=== PATIENT | female | born 1975 | race Caucasian/White ===

== ENCOUNTER 2018-08-02 21:43 | Emergency (ER) | payer OTHER ==
[~2018-08-02] VITALS: Ht 177.8 cm; Wt 70.0 kg
[2018-08-02] MEDS ORDERED: CefTRIAXone 1000mg IM Kit (w/lidocaine diluent) IM ONE (23:35)
[2018-08-02] MEDS ORDERED: metroNIDAZOLE 500mg tablet PO ONE (23:35)
[2018-08-02] MEDS ORDERED: azithromycin 250mg tablet PO ONE (23:35)
[2018-08-02 23:44] LABS: CLARITY,URINE CLEAR (Clear); COLOR,URINE YELLOW (Yellow); GLUCOSE, URINE NEGATIVE (Neg); KETONES,URINE TRACE mg/dl (Neg); LEUKOCYTE ESTERASE ,URINE NEGATIVE (Neg); NITRITES, URINE NEGATIVE (Neg); OCCULT BLOOD,URINE SMALL (Neg); PROTEIN,URINE TRACE mg/dl (Neg); URINE HCG NEGATIVE (NEG); UROBILINOGEN,URINE 0.2 E.U/dL (0.2-1.0)
[2018-08-03] LABS: UA COLLECTION TYPE CLN CATCH MIDSTREAM
[2018-08-03 00:02] LABS: BACTERIA,URINE 2+ /HPF (Neg); RBC,URINE 0-2 /HPF (0-2); WBC,URINE NONE SEEN /HPF (0-4)
[2018-08-03 00:03] LABS: SQUAMOUS EPITHELIAL CELL,UR MANY /LPF (FEW)
[2018-08-03 00:09] VITALS: BP 163/101
== END 2018-08-03 01:18 | disposition home or self-care (01) ==
LOC: ER 21:45
DX: N89.8 Other specified noninflammatory disorders of vagina (principal); R30.0 Dysuria; I10 Essential (primary) hypertension
CPT/HCPCS: 36415; 81001; 81025; 87210; 87491; 87591; 96372; 99283; J0696; 81003; J3490

== ENCOUNTER 2019-11-20 19:32 | Emergency (ER) | payer MEDICAID ==
[~2019-11-20] VITALS: Ht 177.8 cm; Wt 68.2 kg
--- NOTE | 2019-11-20 19:47 | NUR ---
[facility] CONTACTED. REQUESTED BLOOD PANEL AND TO CONTACT THEM IS PATIENT'S CONDITION CHANGES.
--- NOTE | 2019-11-20 19:51 | NUR ---
AGUSTIN (WHO BROUGHT PT IN) GABY VAZQUEZ, [phone].
[2019-11-20 19:59] LABS: BASOPHILS % (AUTO) 0.7 % (0-1); EOSINOPHILS # (AUTO) 0.1 X10'3 (0-0.9); EOSINOPHILS % (AUTO) 3.8 % (0-6); HEMATOCRIT 37.6 % (35.0-45.0); HEMOGLOBIN 13.1 g/dl (12.0-16.0); LYMPHOCYTES # (AUTO) 1.4 X10'3 (1.1-4.8); LYMPHOCYTES % (AUTO) 37.2 % (21-51); MEAN CORPUSCULAR HEMOGLOBIN 29.2 PG (27.0-31.0); MEAN CORPUSCULAR HGB CONC 34.9 g/dL (33.0-36.5); MEAN CORPUSCULAR VOLUME 83.8 FL (78-98); MEAN PLATELET VOLUME 6.4 FL (7.4-10.4); MONOCYTES # (AUTO) 0.3 X10'3 (0-0.9); MONOCYTES % (AUTO) 7.2 % (2-12); NEUTROPHILS % (AUTO) 51.1 % (42-75); PLATELET COUNT 222 X10'3 (140-440); RED BLOOD COUNT 4.48 X10'6 (4.20-5.60); RED CELL DISTRIBUTION WIDTH 12.6 % (11.5-14.5); WHITE BLOOD COUNT 3.8 X10'3 (4.5-11.0)
[2019-11-20 20:10] LABS: ALANINE AMINOTRANSFERASE 17 U/L (12-78); ALBUMIN/GLOBULIN RATIO 1.4 (1.1-1.5); ALKALINE PHOSPHATASE 67 IU/L (46-116); ANION GAP 8 (8-16); ASPARTATE AMINO TRANSFERASE 13 U/L (10-37); BILIRUBIN,TOTAL 0.8 MG/DL (0.1-1.0); BLOOD UREA NITROGEN 15 MG/DL (7-18); BUN/CREATININE RATIO 12.7 (6.6-38.0); CALCIUM 8.8 MG/DL (8.5-10.1); CHLORIDE 104 MMOL/L (99-107); CREATININE 1.18 MG/DL (0.40-0.90); GLUCOSE 96 MG/DL (70-104); POTASSIUM 3.2 MMOL/L (3.5-5.1); SODIUM 140 MMOL/L (135-145); TOTAL CARBON DIOXIDE 28.2 MMOL/L (24-32); TOTAL PROTEIN 6.8 G/DL (6.4-8.2); eGFR 50 ML/MIN
[2019-11-20] MEDS ORDERED: potassium Cl 20 mEq SR tablet PO ONE (20:15)
[2019-11-20 20:20] LABS: ETHANOL 0.108 GM/DL (0.0-0.010)
[2019-11-20 20:21] LABS: ACETAMINOPHEN < 2.0 UG/ML (10-30)
--- NOTE | 2019-11-20 20:32 | NUR ---
SLEEPING UNDISTURBED. PROTECTING AIRWAY, NAD
[2019-11-20 23:25] LABS: URINE AMPHETAMINE SCREEN POSITIVE (Neg); URINE BARBITUATE SCREEN NEGATIVE (Neg); URINE BENZODIAZEPINES SCREEN POSITIVE (Neg); URINE CANNABINOID SCREEN NEGATIVE (Neg); URINE COCAINE SCREEN NEGATIVE (Neg); URINE METHADONE SCREEN NEGATIVE (Neg); URINE OPIATE SCREEN NEGATIVE (Neg); URINE PHENCYCLIDINE SCREEN NEGATIVE (Neg)
--- NOTE | 2019-11-20 23:37 | NUR ---
K-dur was ordered. Patient was asleep. K-dur still needed in morning when patient is awake. Dr. Miller advised that patient will not need a morning blood draw and is medically cleared.
--- NOTE | 2019-11-21 00:02 | NUR ---
Received report and assumed care of patient from NICOLE Aguilar.
--- NOTE | 2019-11-21 01:17 | NUR ---
The patient is sleeping in supine position. RR unlabored. No s/s of distress.
--- NOTE | 2019-11-21 02:59 | NUR ---
Patient is sleeping on her left side. RR unlabored. No s/s of distress.
--- NOTE | 2019-11-21 04:40 | NUR ---
ASSUMED CARE OF PT FROM NICOLE OLVERA. PT IS ASLEEP, RR 14 AND UNLABORED. SITTER WITHIN VIEW OF PT AAT. WADE REPORTS PT HAS BEEN SLEEPING PEACFULLY FOR THE PAST FEW HRS. PT IS MEDICALLY CLEARED FOR EVAL. STILL NEED MED REC COMPLETED.
--- NOTE | 2019-11-21 06:30 | NUR ---
Patient moved from main ED to overflow, ambulating self accompanied by tech. She is ambulating self. She has disorganized speech. Patient lays down in bed on her left side, no distress observed.
--- NOTE | 2019-11-21 06:44 | NUR ---
PATIENT MOVED FROM ER BED 14 TO BED 22.
--- NOTE | 2019-11-21 08:04 | NUR ---
Medical doctor at bedside evaluating patient.
--- NOTE | 2019-11-21 09:24 | NUR ---
Patient resting in bed peacefully on her left side. No distress observed.
--- NOTE | 2019-11-21 09:30 | NUR ---
Hailey from [facility] came to evaluate the patient. Patient is drowsy. Hailey states she will try again later to assess the patient.
--- NOTE | 2019-11-21 09:44 | NUR ---
Miquel Malloy, patient's room mate called to check on patient. Patient is currently resting in bed peacefully. Phone number: [phone].
--- NOTE | 2019-11-21 10:20 | NUR ---
Patient is seen ambulating to the bathroom. No distress observed. Patient asks multiple times "how long am I going to be here". Explained to patient that she will need to be assessed by a [facility] clinician. She verbalizes undertanding and states, "I have to get home to my grandson".
--- NOTE | 2019-11-21 11:47 | NUR ---
Spoke to patient's boyfriend, Toibas Lucio with verbal from patient. Patient's boyfriend states that patient acts "irratically at times". He reports that they have been dating for a "little over a year". He reports that the patient states she has anxiety and often obtains xanax illegally. Boyfriend reports that he was unaware patient may be using other illicit drugs.
--- NOTE | 2019-11-21 13:34 | NUR ---
Patient continues to be resting in bed on her left side. No distress observed.
--- NOTE | 2019-11-21 14:48 | NUR ---
Hailey from [facility] is at bedside assessing patient. No distress observed.
--- NOTE | 2019-11-21 14:54 | NUR ---
Hailey from [facility] states that she will not be keeping patient on a hold. Patient states that she is not currently suicidal. Patient reports that this was not a sucide attempt. She reports some stressors with her boyfriend and not currently working due to the current community health crisis.
--- NOTE | 2019-11-21 15:26 | NUR ---
Per patient request, called patient's roomate Miquel to come and chicken picker patient. Patient ambulated self. No distress observed. All items were inventoried and in patient's possession at time of discharge. Paperwork discussed with patient, questions were answered and patient verbalized understanding. She currently denies SI, HI, A/VH. SI resources and CHAN treatment resources given as well.
[2019-11-21 15:30] VITALS: BP 123/74
== END 2019-11-21 15:26 ==
LOC: ER 19:33
DX: T42.4X2A Poisoning by benzodiazepines, intentional self-harm, initial encounter (principal); F10.129 Alcohol abuse with intoxication, unspecified; F15.10 Other stimulant abuse, uncomplicated; Y92.89 Other specified places as the place of occurrence of the external cause
CPT/HCPCS: 36415; 80053; 80305; 80320; 80329; 84443; 85025; 99285